=== PATIENT | female | born 1990 | race Caucasian/White ===

== ENCOUNTER 2017-01-26 13:01 | Emergency (ER) | payer OTHER ==
[~2017-01-26] VITALS: Ht 170.2 cm; Wt 60.8 kg
[2017-01-26] MEDS ORDERED: PRENTAB55 PO (13:22)
[2017-01-26 14:35] LABS: BASO # 0.1 K/mm3 (0.0-0.2); BASO % 0.8 % (0.0-1.0); EOS # 0.1 K/mm3 (0.0-0.50); EOS % 1.7 % (0.0-3.0); LARGE UNSTAINED CELL # 0.1 K/mm3 (0.0-0.4); LARGE UNSTAINED CELL % 1.7 % (0.0-4.0); LYMPH % 25.7 % (24.0-44.0); MEAN CORPUSCULAR HEMOGLOBIN 29.1 pg (27.0-33.0); MEAN CORPUSCULAR HGB CONC 32.8 g/dl (32.0-36.5); MEAN CORPUSCULAR VOLUME 88.6 fl (80.0-96.0); MONO # 0.3 K/mm3 (0.0-0.8); MONO % 3.7 % (0.0-5.0); NEUTROPHILS # 5.2 K/mm3 (1.8-7.7); NEUTROPHILS % 66.4 % (36.0-66.0); PLATELET COUNT, AUTOMATED 278 k/mm3 (150-450); RED CELL DISTRIBUTION WIDTH 11.8 % (11.5-14.5); WHITE BLOOD COUNT 7.8 K/mm3 (4.0-10.0)
[2017-01-26 15:16] LABS: ANION GAP 8 MEQ/L (8-16); BLOOD UREA NITROGEN 17 MG/DL (7-18); CARBON DIOXIDE LEVEL 29 MEQ/L (21-32); CHLORIDE LEVEL 102 MEQ/L (98-107); GLOMERULAR FILTRATION RATE > 60.0 (>60); GLUCOSE, FASTING 90 MG/DL (70-105); HCG, SERUM QUANTITATIVE 927 MIU/ML; POTASSIUM SERUM 3.8 MEQ/L (3.5-5.1); SODIUM LEVEL 139 MEQ/L (136-145)
--- NOTE | 2017-01-26 15:38 | REP ---
FIRST TRIMESTER OB ULTRASOUND AND ENDOVAGINAL PROBE OB ULTRASOUND: 01/26/2017. Clinical history: First trimester , light bleeding. HCG unavailable. 6 weeks 1 day by LMP. Transabdominal and endovaginal probes were utilized. Bladder measures 9 x 5 x 9.3 cm. Uterus appears retroverted on the endovaginal probe. There is a gestational sac in the fundus and a yolk sac is seen within it. Uterus measures 7 x 4.3 x 5.3 cm. The mean sac diameter of 5.2 mm corresponds to 5 weeks 2 days. The yolk sac is 4.3 mm size. There is no subchorionic bleed. No pole is identified nor heart activity noted on interrogation of the gestational sac. Right ovary 3.7 x 1.4 x 2.6 cm. The left ovary 3.6 x 2.5 x 2.8 cm. There is a 1.7 cm hemorrhagic corpus luteum cyst on the left. There is a mild amount of free fluid throughout the pelvis. Impression: 1. Single intrauterine gestational sac with a yolk sac seen but no pole identified. It may be too early to identify an IUP (5w 2d by LMP), missed spontaneous is a consideration and ectopic cannot be entirely excluded. The left ovary shows a 1.7 cm hemorrhagic corpus luteum. Free fluid may be related to rupture of the corpus luteum. This should be followed clinically with HCG and ultrasound at appropriate interval. Signed by Harpal Sen MD 01/26/2017 05:13 P
[2017-01-26 16:07] VITALS: BP 109/68
== END 2017-01-26 16:10 | disposition home or self-care (01) ==
LOC: M ED 14:57
DX: O26.891 Other specified pregnancy related conditions, first trimester (principal); N83.12 Corpus luteum cyst of left ovary; Z3A.01 Less than 8 weeks gestation of pregnancy

== ENCOUNTER → 2018-10-09 | Outpatient (CLI) | payer OTHER | LOC: M WUC 14:51 | DX: M25.541 Pain in joints of right hand (principal) | CPT/HCPCS: 73110 ==

== ENCOUNTER → 2020-04-07 | Outpatient (CLI) | payer OTHER ==
[~2020-04-07] MED LIST: PRENTAB55 PO
--- NOTE | 2020-04-07 17:26 | REP ---
REASON: Popping while dancing. PRIORS: None. There is tricompartmental marginal osteophytosis. The compartments are symmetric and relatively well maintained. There is no acute fracture, dislocation, or subluxation. IMPRESSION: Early degenerative changes. Electronically Signed by Mainor Miller DO 04/07/2020 07:12 P
== END ==
LOC: M WUC 11:45
PROVIDERS: ATTEND Physician Assistant
DX: M25.562 Pain in left knee (principal); M17.12 Unilateral primary osteoarthritis, left knee

== ENCOUNTER → 2020-04-29 | Outpatient (REF) | payer OTHER ==
[2020-04-29 19:43] LABS: CHLAMYDIA DNA AMPLIFICATION NEGATIVE (NEGATIVE); GC DNA AMPLIFICATION NEGATIVE (NEGATIVE)
== END ==
LOC: M WUC 15:52
PROVIDERS: ATTEND Physician Assistant
DX: N39.0 Urinary tract infection, site not specified (principal); R30.0 Dysuria

== ENCOUNTER → 2020-12-31 | Outpatient (REF) | payer OTHER | LOC: M WUC 15:45 | PROVIDERS: ATTEND Physician Assistant | DX: R30.0 Dysuria (principal) ==

== ENCOUNTER → 2022-10-21 | Outpatient (CLI) | payer OTHER | LOC: M WUC 08:36 | PROVIDERS: ATTEND Student in an Organized Health Care Education/Training Program | DX: M54.50 Low back pain, unspecified (principal); M25.511 Pain in right shoulder ==

== ENCOUNTER → 2023-09-04 | Outpatient (REF) | payer OTHER | LOC: M WUC 17:57 | PROVIDERS: ATTEND Registered Nurse | DX: B37.31 Acute candidiasis of vulva and vagina (principal); N39.0 Urinary tract infection, site not specified ==

== ENCOUNTER → 2025-01-22 | Outpatient (REF) | payer OTHER ==
[2025-01-22 21:13] LABS: Trichomonas vaginalis (AMP) NOT DETECTED (NEGATIVE)
[2025-01-22 21:37] LABS: GC DNA AMPLIFICATION NEGATIVE (NEGATIVE)
== END ==
LOC: M LAB REF 19:14
PROVIDERS: ATTEND Physician Assistant
DX: R30.0 Dysuria (principal)